=== PATIENT | female | born 1995 | race Hispanic/Latino ===

== ENCOUNTER 2016-12-06 23:40 | Emergency (ER) | payer OTHER, SELFPAY ==
[2016-12-07] LABS: Bilirubin Negative (Negative); Blood, Urine Moderate (Negative); Glucose, Urine (Dipstick) Negative (Negative); Ketone, Urine Negative (Negative); Nitrite Negative (Negative); Protein, Urine (Dipstick) 30 mg/dL (Neg-Trace)
[2016-12-07 00:11] LABS: Bacteria/HPF 1+ HPF (None Seen); RBC/HPF 0-3 HPF (0-3); Transitional Epithelial 0-3 HPF (0-3); WBC/HPF 0-3 HPF (0-3)
[2016-12-07] MEDS ORDERED: traMADol HCl 50 MG TAB ONE (00:17)
--- NOTE | 2016-12-07 10:18 | CT ---
PRELIMINARY REPORT/[facility]/EMERGENCY AFTER-HOURS PROCEDURE: EXAM: CT Abdomen and Pelvis Without Intravenous Contrast. CLINICAL HISTORY: 21 years old, female; Pain; Abdominal pain; Flank; Other: Bilateral flank pain; Patient HX: Er 21yr female with bilateral flank pain x 2 days. Pain increasing. S/P vaginal delivery 2 months ago. No ojeda rgical history. R/O stone. TECHNIQUE: Axial computed tomography images of the abdomen and pelvis without intravenous contrast. Coronal reformatted images were created and reviewed. COMPARISON: No relevant prior studies available. FINDINGS: Lower thorax: No acute findings. ABDOMEN: Liver: Normal. Gallbladder and bile ducts: Small amount of layering hyperdense material within the gallbladder, pos sibly gallbladder sludge or small stones. No CT evidence of acute cholecystitis. Pancreas: Normal. Spleen: Normal. Adrenals: Normal. Kidneys and ureters: Normal. Stomach and bowel: Normal. Appendix: Appendix normal. PELVIS: Bladder: Normal. Reproductive: 3.4 cm cystic structure within the left adnexa, likely left ovarian cyst. ABDOMEN and PELVIS: Intraperitoneal space: Normal. No free air. No significant fluid collection. Bones/joints: No acute fracture. No dislocation. Soft tissues: Normal. Vasculature: Phleboliths within the pelvis. No abdominal aortic aneurysm. Lymph nodes: Normal. IMPRESSION: 1. 3.4 cm cystic structure within the left adnexa, likely left ovarian cyst. Consider further evalua tion with sonography. 2. Incidental/non-acute findings are described above. Thank you for allowing us to participate in the care of your patient. Dictated and Authenticated by: Bennett Louie MD 12/07/2016 12:46 AM Central Time ([place] \T\ Maria E) FINAL REPORT CT OF THE ABDOMEN AND PELVIS WITHOUT CONTRAST: DATE: 12/07/16. FINDINGS: Spiral CT of the abdomen and pelvis was done for evaluation of flank pain bilaterally. Axial slices were acquired without oral or IV contrast. Coronal reconstructions were then done. The lung bases are clear. The liver may be slightly generous in size but otherwise appeared normal. The spleen, pancreas, adrenal glands, and abdominal aorta appear normal. There is a layering hype rdense substance in the gallbladder that could be either thick sludge or tiny stones. The gallbladd er wall does not seem thick. The kidneys showed no mass or hydronephrosis. There is some slight hy perdensity to the renal pyramids but individual calculi were not appreciated. No ureteral calculi w ere seen. The bowel is unremarkable in appearance. There is no inflammatory change around bowel and no bowel wall thickening. The appendix appears normal. No free air or free fluid is seen. CT of the pelvis was remarkable for a 3.9 cm rounded lucent area in the left adnexa that is probably an ovarian cyst. Ultrasound is needed for confirmation and characterization. No free fluid is pre sent. There are no inflammatory changes. There may be some central bulging of the L5-S1 disk witho ut signs of impingement. IMPRESSION: 1. Probable left ovarian cyst. Followup ultrasound suggested. 2. Layering hyperdense substance of the gallbladder. Sludge versus tiny stones. Ultrasound would be helpful. Report in agreement with preliminary reading by [facility]. POS: HOME
== END 2016-12-07 01:00 | disposition home or self-care (01) ==
LOC: BURERS 23:40
DX: R19.7 Diarrhea, unspecified (principal); M54.5 Low back pain
CPT/HCPCS: 74176; 81003; 81015; 81025; 87086

== ENCOUNTER 2017-01-08 22:05 | Emergency (ER) | payer OTHER, SELFPAY ==
[2017-01-08 23:54] LABS: Bilirubin Negative (Negative); Blood, Urine Negative (Negative); Clarity Slightly Cloudy (Clear); Glucose, Urine (Dipstick) Negative (Negative); Leukocyte Small (Negative); Nitrite Negative (Negative); Protein, Urine (Dipstick) Negative (Neg-Trace); Urobilinogen 0.2 mg/dL (0.2-1.0); pH, Urine 8.5 (5.0-9.0)
[2017-01-08 23:56] LABS: Bacteria/HPF Rare-Few HPF (None Seen); RBC/HPF 0-3 HPF (0-3); Squamous Epithelial 0-3 HPF (0-3)
[2017-01-08 23:59] LABS: Pregu Control Bar Appear? YES (CONTROL BAR)
[2017-01-09 00:08] LABS: Albumin 4.6 g/dL (3.5-5.0); BUN (Urea Nitrogen) 9 mg/dL (7.0-18.7); Bilirubin, Total 0.3 mg/dL (0.2-1.2); Calc. Creatinine Clearance 0 mL/min (70-130); Calcium 9.7 mg/dL (7.8-10.44); Carbon Dioxide 24 mmol/L (22-29); Chloride 106 mmol/L (98-107); Estimated GFR-MDRD Greater than 90; Globulin 3.9 g/dL (2.4-3.5); Glucose 89 mg/dL (70-105); Potassium 3.9 mmol/L (3.5-5.1); Protein, Total 8.5 g/dL (6.0-8.3); Sodium 140 mmol/L (136-145)
[2017-01-09 00:09] LABS: AST (SGOT) 27 U/L (5-34); Alkaline Phosphatase 82 U/L (40-150)
[2017-01-09 00:13] LABS: ALT (SGPT) 29 U/L (0-55); Lipase 18 U/L (8-78)
[2017-01-09 00:14] LABS: Anion Gap 14 mmol/L (10-20)
[2017-01-09 00:22] LABS: Hemoglobin 12.1 g/dL (12.0-16.0); Mean Corpuscular HGB CONC 32.1 g/dL (32.0-36.0); Mean Corpuscular Hemoglobin 26.8 pg (27.0-31.0); Mean Corpuscular Volume 83.4 fL (81.0-99.0); Mean Platelet Volume 7.4 fL (7.4-10.4); Platelet Count 483 thou/uL (130-400); RBC Distribution Width 15.1 % (11.5-14.5); Red Blood Cell (RBC) Count 4.51 mill/uL (4.20-5.40); White Blood Cell (WBC) Count 8.7 thou/uL (4.8-10.8)
[2017-01-09 00:23] LABS: Eosinophils 3 % (0-10); Lymphocytes 28 % (21-51); Monocytes 6 % (0-10); Neutrophil 62 % (42-75)
[2017-01-09 00:30] LABS: PLT Morphology Comment Appears Increased; RBC Morphology Normal
== END 2017-01-08 23:40 | disposition home or self-care (01) ==
LOC: BURERS 22:05
DX: K80.50 Calculus of bile duct without cholangitis or cholecystitis without obstruction (principal)
CPT/HCPCS: 81003; 81015; 81025; 83690

== ENCOUNTER 2017-04-09 10:43 | Emergency (ER) | payer SELFPAY ==
[2017-04-09 11:07] LABS: Bilirubin Negative (Negative); Blood, Urine Negative (Negative); Clarity Clear (Clear); Glucose, Urine (Dipstick) Negative (Negative); Leukocyte Trace (Negative); Nitrite Negative (Negative); Pregnancy Test - Urine (BHCG) Negative (Negative); Pregu Control Background? CLEAR/WHITE (CLR/WHITE); Pregu Control Bar Appear? YES (CONTROL BAR); Protein, Urine (Dipstick) Negative (Neg-Trace); Specific Gravity 1.015 (1.002-1.036); Specific Gravity, Urine 1.015 (1.005-1.030); Urobilinogen 0.2 mg/dL (0.2-1.0); pH, Urine 8.5 (5.0-9.0)
[2017-04-09] MEDS ORDERED: Mag-Al Plus 1200 MG/1200 MG/120 MG/30 ML UDCUP ONE (11:07)
[2017-04-09] MEDS ORDERED: Lidocaine Viscous Sol 2% 15 ml UD Cup ONE (11:07)
[2017-04-09 11:15] LABS: Bacteria/HPF 1+ HPF (None Seen); RBC/HPF None Seen HPF (0-3); WBC/HPF 0-3 HPF (0-3)
[2017-04-09 11:22] LABS: #Basophils 0.1 thou/uL (0.0-0.2); #Eosinphils 0.1 thou/uL (0.0-0.7); #Monocytes 0.7 thou/uL (0.11-0.59); #Neutrophils 7.6 thou/uL (1.40-6.50); %Basophils 0.8 % (0.0-1.0); %Eosinophils 0.5 % (0.0-10.0); %Lymphocytes 10.3 % (21.0-51.0); %Monocytes 7.1 % (0.0-10.0); %Neutrophils 81.3 % (42.0-75.0); Hemoglobin 12.5 g/dL (12.0-16.0); Mean Corpuscular HGB CONC 32.5 g/dL (32.0-36.0); Mean Corpuscular Hemoglobin 26.6 pg (27.0-31.0); Mean Corpuscular Volume 81.6 fl (81.0-99.0); Mean Platelet Volume 7.7 fL (7.4-10.4); Platelet Count 406 thou/uL (130-400); RBC Distribution Width 15.9 % (11.5-14.5); Red Blood Cell (RBC) Count 4.71 mill/uL (4.20-5.40); White Blood Cell (WBC) Count 9.4 thou/uL (4.8-10.8)
[2017-04-09 11:31] LABS: ALT (SGPT) 413 U/L (8-55); AST (SGOT) 1144 U/L (5-34); Albumin 4.5 g/dL (3.5-5.0); Alkaline Phosphatase 103 U/L (40-150); Anion Gap 16 mmol/L (10-20); BUN (Urea Nitrogen) 7 mg/dL (7.0-18.7); Bilirubin, Total 1.5 mg/dL (0.2-1.2); Calc. Creatinine Clearance 0 mL/min (70-130); Calcium 9.6 mg/dL (7.8-10.44); Carbon Dioxide 23 mmol/L (22-29); Chloride 105 mmol/L (98-107); Estimated GFR-MDRD Greater than 90; Globulin 3.6 g/dL (2.4-3.5); Glucose 109 mg/dL (70-105); Potassium 4.3 mmol/L (3.5-5.1); Protein, Total 8.1 g/dL (6.0-8.3); Sodium 140 mmol/L (136-145)
[2017-04-09 12:10] LABS: Lipase 6829 U/L (8-78)
== END 2017-04-09 12:29 | disposition home or self-care (01) ==
LOC: BURERS 10:43
DX: K85.90 Acute pancreatitis without necrosis or infection, unspecified (principal)
CPT/HCPCS: 80053; 81003; 81015; 81025; 83690; 85025; 96374; J2270

== ENCOUNTER → 2018-03-12 | Emergency (ER) | payer SELFPAY ==
[~2018-03-12] MED LIST: HYDROcodone/Acetaminophen 10/325 mg Tablet ONE; Ibuprofen 800 MG TAB ONE
== END ==
LOC: BURERS 00:09
DX: S39.012A Strain of muscle, fascia and tendon of lower back, initial encounter (principal); X50.1XXA Overexertion from prolonged static or awkward postures, initial encounter
CPT/HCPCS: 99283

== ENCOUNTER 2019-06-16 16:25 | Emergency (ER) | payer OTHER, SELFPAY ==
[2019-06-16 16:42] LABS: Bilirubin Negative (Negative); Blood, Urine Moderate (Negative); Clarity Cloudy (Clear); Glucose, Urine (Dipstick) Negative (Negative); Leukocyte Moderate (Negative); Nitrite Negative (Negative); Protein, Urine (Dipstick) Trace mg/dL (Neg-Trace); Urobilinogen 0.2 mg/dL (Less than 2)
[2019-06-16 16:48] LABS: Bacteria/HPF 2+ HPF (None Seen); Broad Cast None Seen LPF (None Seen); Calcium Oxalate Crystals None Seen HPF (None Seen); Cellular Cast None Seen LPF (None Seen); Epithelial Cast None Seen LPF (None Seen); Fatty Cast None Seen LPF (None Seen); Mucous/LPF None Seen LPF (<2+); Other Casts None Seen LPF (None Seen); Oval Fat Bodies/HPF None Seen HPF (None Seen); RBC/HPF 0-3 HPF (0-3); Red Blood Cell Cast None Seen LPF (None Seen); Renal Epithelial None Seen HPF (None Seen); Sperm/HPF None Seen HPF (None Seen); Squamous Epithelial 0-3 HPF (0-3); Transitional Epithelial None Seen HPF (None Seen); Trichomonas/HPF None Seen HPF (None Seen); Triple Phosphate Crystal None Seen HPF (None Seen); Unclassified Crystals None Seen HPF (None Seen); Waxy Cast None Seen LPF (None Seen); White Blood Cell Cast None Seen LPF (None Seen); Yeast-Budding None Seen HPF (None Seen); Yeast-Hyphae None Seen HPF (None Seen)
[2019-06-16 16:51] LABS: Pregu Control Background? CLEAR/WHITE (CLR/WHITE); Pregu Control Bar Appear? YES (CONTROL BAR)
[2019-06-16 16:53] LABS: Pregnancy Test - Urine (BHCG) Negative (Negative)
[2019-06-16] MEDS ORDERED: Phenazopyridine HCl 97.5 MG TABLET ONE (17:01)
[2019-06-16] MEDS ORDERED: Sulfameth/Trimethoprim DS 800-160mg TAB ONE (17:01)
== END 2019-06-16 17:04 | disposition home or self-care (01) ==
LOC: BURERS 16:25
DX: N39.0 Urinary tract infection, site not specified (principal)
CPT/HCPCS: 81003; 81015; 81025; 99284

== ENCOUNTER 2019-06-30 18:44 | Emergency (ER) | payer SELFPAY | END 2019-06-30 19:20 | disposition home or self-care (01) | LOC: BURERS 18:44 | DX: S16.1XXA Strain of muscle, fascia and tendon at neck level, initial encounter (principal); M79.10 Myalgia, unspecified site; V43.52XA Car driver injured in collision with other type car in traffic accident, initial encounter | CPT/HCPCS: 99283 ==

== ENCOUNTER 2019-09-24 12:00 | Emergency (ER) | payer MEDICAID, SELFPAY ==
[2019-09-24 12:39] LABS: Bilirubin Small (Negative); Blood, Urine Moderate (Negative); Clarity Cloudy (Clear); Glucose, Urine (Dipstick) Negative (Negative); Leukocyte Small (Negative); Nitrite Negative (Negative); Protein, Urine (Dipstick) 30 mg/dL (Neg-Trace); Urobilinogen 0.2 mg/dL (Less than 2)
[2019-09-24 12:42] LABS: Bacteria/HPF 3+ HPF (None Seen); Mucous/LPF 2+ LPF (<2+)
== END 2019-09-24 13:09 | disposition home or self-care (01) ==
LOC: BURERS 12:00
DX: O23.11 Infections of bladder in pregnancy, first trimester (principal); O99.89 Other specified diseases and conditions complicating pregnancy, childbirth and the puerperium; R31.9 Hematuria, unspecified; Z3A.01 Less than 8 weeks gestation of pregnancy
CPT/HCPCS: 81003; 81015; 87086; 99284

== ENCOUNTER 2021-09-19 20:51 | Emergency (ER) | payer MEDICAID, OTHER ==
[2021-09-19 21:41] LABS: #Basophils 0.1 thou/uL (0.0-0.2); #Eosinphils 0.1 thou/uL (0.0-0.7); #Lymphocytes 1.3 thou/uL (1.20-3.40); #Monocytes 0.5 thou/uL (0.11-0.59); #Neutrophils 10.6 thou/uL (1.40-6.50); %Basophils 0.6 % (0.0-1.0); %Eosinophils 0.9 % (0.0-10.0); %Lymphocytes 10.2 % (21.0-51.0); %Monocytes 3.8 % (0.0-10.0); %Neutrophils 84.6 % (42.0-75.0); Hemoglobin 11.1 g/dL (12.0-16.0); Mean Corpuscular HGB CONC 33.8 g/dL (32.0-36.0); Mean Corpuscular Hemoglobin 30.4 pg (27.0-31.0); Platelet Count 370 thou/uL (130-400); Pregnancy Test - Urine (BHCG) POSITIVE (Negative); Pregu Control Background? CLEAR/WHITE (CLR/WHITE); Pregu Control Bar Appear? YES (CONTROL BAR); RBC Distribution Width 13.1 % (11.5-14.5); Red Blood Cell (RBC) Count 3.66 mill/uL (4.20-5.40); Specific Gravity 1.034 (1.002-1.036); White Blood Cell (WBC) Count 12.5 thou/uL (4.8-10.8)
[2021-09-19 22:01] LABS: ALT (SGPT) 16 U/L (8-55); AST (SGOT) 18 U/L (5-34); Alkaline Phosphatase 57 U/L (40-110); Anion Gap 14 mmol/L (10-20); BUN (Urea Nitrogen) 12 mg/dL (7.0-18.7); Bilirubin, Total 0.2 mg/dL (0.2-1.2); Calc. Creatinine Clearance 0 mL/min (70-130); Calcium 9.6 mg/dL (7.8-10.44); Carbon Dioxide 22 mmol/L (22-29); Chloride 107 mmol/L (98-107); Globulin 3.4 g/dL (2.4-3.5); Glucose 130 mg/dL (70-105); Lipase 12 U/L (8-78); Potassium 3.6 mmol/L (3.5-5.1); Protein, Total 7.4 g/dL (6.0-8.3); Sodium 139 mmol/L (136-145)
== END 2021-09-20 | disposition short-term general hospital (02) ==
LOC: BURERS 20:51
DX: O20.0 Threatened abortion (principal); Z3A.10 10 weeks gestation of pregnancy
CPT/HCPCS: 36415; 80053; 81025; 83690; 84702; 85025; 86900; 86901; 99284